=== PATIENT | male | born 1955 | race Caucasian/White ===

== ENCOUNTER → 2016-07-11 | Outpatient (CLI) | payer BC ==
--- NOTE | 2016-07-11 12:34 | CT ---
CT urogram with and without contrast HISTORY: Hydronephrosis, calculus of kidney Helical acquisition obtained through the abdomen pre- and postadministration 100 cc Omni 300 IV, post contrast imaging obtained through the abdomen and pelvis. Three-dimensional reconstructions performed on an alternate workstation. No comparisons The left kidney shows a punctate calcification at the upper pole measuring 1 mm. There is an addition al calcification at the midpole laterally measuring approximately 6 to 7 mm which is nonobstructive, lower pole calculus also noted measuring approximately 6 mm which is nonobstructive. Cystic areas are diffuse within the left renal collecting system greater than right compatible with parapelvic cysts. Symmetric nephrograms are present bilaterally, renal cell carcinoma is not evident. Small posterior cortical cyst present on the right kidney measuring only 1 cm in greatest dimension. The ureters show normal course and caliber. No evident filling defect within the renal collecting systems, there is n o hydronephrosis. Prostate shows some associated calcification. The liver shows low attenuation in likely is enlarged. The adrenal glands, spleen, pancreas, gallblad melodie are unremarkable. Lung bases show some minimal atelectatic change. Degenerative disc changes in t he visualized spine. Osteoarthritis within the hips. The bladder shows no filling defect. No retroper itoneal adenopathy. Aorta shows some atheromatous change, normal caliber. Possible inguinal hernias c ontaining fat. IMPRESSION: Nonobstructive left nephrolithiasis. Parapelvic cysts are extensive within the left kidne y. Probable fatty infiltration of the liver, hepatomegaly. Additional findings above.
== END | disposition home or self-care (01) ==
LOC: RADCTMAIN 10:07
PROVIDERS: ATTEND Urology
DX: N20.0 Calculus of kidney (principal); N28.1 Cyst of kidney, acquired
CPT/HCPCS: 74178; 74400; Q9967

== ENCOUNTER → 2018-11-13 | Outpatient (CLI) | payer BC, MEDICARE ==
--- NOTE | 2018-11-13 07:32 | US ---
EXAMINATION TYPE: US duplex aorta DATE OF EXAM: 11/13/2018 COMPARISON: NONE CLINICAL HISTORY: I71.4 AAA Screening, Z87.891 Personal history of n. maternal history of AAA, no sym ptoms per patient EXAM MEASUREMENTS: Abdominal Aorta: Proximal: N/A Mid: 2.1 x 2.0cm Distal: 1.7 x 1.7cm Bifurcation: Rt 1.1cm Lt 1.1cm Unable to visualize proximal portion due to bowel gas. Visualized portion of aorta were normal caliber. IMPRESSION: No sonographic evidence of abdominal aortic aneurysm in the visualized portions of the ab dominal aorta. The aorta is mildly tortuous.
--- NOTE | 2018-11-13 07:38 | XR ---
EXAMINATION TYPE: XR chest 2V DATE OF EXAM: 11/13/2018 COMPARISON: NONE HISTORY: Productive cough and left shoulder pain TECHNIQUE: Frontal and lateral views of the chest are obtained. FINDINGS: There is no focal air space opacity, pleural effusion, or pneumothorax seen. The cardiac silhouette size is within normal limits. The osseous structures are intact. Moderate multilevel deg enerative changes of the spine are seen. IMPRESSION: No acute cardiopulmonary process.
--- NOTE | 2018-11-13 07:43 | XR ---
EXAMINATION TYPE: XR shoulder complete LT DATE OF EXAM: 11/13/2018 CLINICAL HISTORY: Left shoulder pain without injury TECHNIQUE: Three views of the left shoulder are obtained. COMPARISON: None. FINDINGS: There is no acute fracture/dislocation evident in the left shoulder. The acromioclavicula r joint demonstrates small marginal osteophytes. Glenohumeral joint is within normal limits. The visu alized ribs are intact and unremarkable. IMPRESSION: There is no acute fracture or dislocation in the left shoulder. Mild acromioclavicular a rthropathy.
== END ==
LOC: RADUSWWP 06:51
PROVIDERS: ATTEND Family Medicine
DX: I71.4 Abdominal aortic aneurysm, without rupture (principal); M25.512 Pain in left shoulder; M75.41 Impingement syndrome of right shoulder; M24.512 Contracture, left shoulder; R05 Cough
CPT/HCPCS: 71046; 93979

== ENCOUNTER 2021-04-29 13:21 | Emergency (ER) | payer MEDICARE ==
[2021-04-29 13:41] VITALS: TEMP 98.1
[2021-04-29] MEDS ORDERED: SODIUM CHLORIDE 0.9% 500 ML 500 ML IV STA (16:40)
--- NOTE | 2021-04-29 16:44 | ED ---
General Adult HPI - General Chief complaint: Syncope Stated complaint: Post Op-Syncope Time Seen by Provider: 04/29/21 16:31 Source: patient, family, RN notes reviewed, old records reviewed Mode of arrival: ambulatory Limitations: no limitations - History of Present Illness Initial comments: Well-appearing 65-year-old male, alert and oriented 4, presents to the emergency room with complaints of a syncopal episode this morning around 8:30 after urinating. Patient states that he urinated and then walked from the bathroom to the bedroom and had syncope. He denies hitting his head. He denies any chest pain or difficulty in breathing. He states he has no symptoms at this time. He did go to urgent care and they recommended he come to the emergency room for evaluation. He does have a history of a right hip replacement done on Friday at [facility]. He is taking pain medication and became constipated last week. He did take milk of magnesia and a laxative and did have a bowel movement yesterday. He denies any nausea vomiting or diarrhea. He denies any fevers. -: hour(s) (8) Severity scale (1-10): 3 Quality: aching Consistency: intermittent Improves with: rest Worsens with: movement Associated Symptoms: denies other symptoms - Related Data Home Medications Medication Instructions Recorded Confirmed Acetaminophen Tab [Tylenol] 1,000 mg PO HS PRN 04/29/21 04/29/21 Acetaminophen Tab [Tylenol] 500 mg PO Q4-6H PRN 04/29/21 04/29/21 Aspirin EC [Ecotrin Low Dose] 81 mg PO DAILY 04/29/21 04/29/21 Docusate [Colace] 100 mg PO TID 04/29/21 04/29/21 Magnesium Hydroxide [Milk of 800 mg PO ONCE PRN 04/29/21 04/29/21 Magnesia] oxyCODONE HCL 5 mg PO Q4-6H PRN 04/29/21 04/29/21 Allergies Allergy/AdvReac Type Severity Reaction Status Date / Time No Known Allergies Allergy Verified 04/29/21 18:15 Review of Systems ROS Statement: Those systems with pertinent positive or pertinent negative responses have been documented in the HPI. ROS Other: All systems not noted in ROS Statement are negative. Past Medical History Past Medical History: No Reported History History of Any Multi-Drug Resistant Organisms: None Reported Past Surgical History: Joint Replacement Past Psychological History: No Psychological Hx Reported Smoking Status: Never smoker Past Alcohol Use History: None Reported Past Drug Use History: None Reported General Exam Limitations: no limitations General appearance: alert, in no apparent distress Head exam: Present: atraumatic, normocephalic, normal inspection Eye exam: Present: normal appearance, EOMI. Absent: scleral icterus, conjunctival injection, periorbital swelling, periorbital tenderness ENT exam: Present: normal exam, normal oropharynx, mucous membranes moist Neck exam: Present: normal inspection, full ROM. Absent: tenderness, meningismus, lymphadenopathy, thyromegaly Respiratory exam: Present: normal lung sounds bilaterally. Absent: respiratory distress, wheezes, rales, rhonchi, stridor, chest wall tenderness, accessory muscle use Cardiovascular Exam: Present: regular rate, normal rhythm, normal heart sounds. Absent: systolic murmur, diastolic murmur, rubs, gallop, clicks, JVD GI/Abdominal exam: Present: soft, normal bowel sounds. Absent: distended, tenderness, guarding, rebound, rigid Extremities exam: Present: normal inspection, full ROM, normal capillary refill. Absent: tenderness, pedal edema, joint swelling, calf tenderness Back exam: Present: normal inspection, full ROM. Absent: tenderness, CVA tenderness (R), CVA tenderness (L), rash noted Neurological exam: Present: alert, oriented X3 Psychiatric exam: Present: normal affect, normal mood Skin exam: Present: warm, dry, intact, normal color. Absent: rash, cyanosis, diaphoretic, petechiae, pallor Course Vital Signs 04/29/21 13:38 Temperature 98.1 F Pulse Rate 75 Respiratory 18 Rate Blood Pressure 119/80 O2 Sat by Pulse 97 Oximetry EKG Findings - EKG Results: EKG: sinus rhythm (Ventricular rate of 69, IL interval 0.168, QRS 0.80, QTC 0.407) Medical Decision Making - Medical Decision Making This is a well-appearing 65-year-old male patient presents to the emergency room with a syncopal episode this morning after using the bathroom. He did not hit his head. He is not on any blood thinners. He had a recent right hip replacement on Friday. He has had no complications. States this pain medication caused him to have constipation he uses laxatives. He did have a good bowel movement yesterday. He denies any chest pain or difficulty in breathing. Chest x-ray shows normal chest. Heart and mediastinum are normal EKG shows normal sinus rhythm no ectopy or ST elevation. Troponin is negative at 0.012. There is no evidence of leukocytosis. Hemoglobin and hematocrit are stable. Blood glucose is 154 sodium is 131, potassium is 2.2, urinalysis is clear infection. This is likely a vasovagal episode as patient was leaving the bathroom after urinating when syncope happened. He denies any chest pain or shortness of breath. Patient is feeling better and has not had any dizziness, chest pain or difficulty in breathing while in the emergency room. His vital signs are stable. He'll be discharged home to follow up with his primary care doctor. Discussed with Dr. Liao - Lab Data Result diagrams: 04/29/21 16:58 04/29/21 16:58 Lab Results 04/29/21 04/29/21 04/29/21 Range/Units 16:58 16:58 16:58 WBC 7.8 (3.8-10.6) k/uL RBC 4.48 (4.30-5.90) m/uL Hgb 13.3 (13.0-17.5) gm/dL Hct 40.8 (39.0-53.0) % MCV 91.1 (80.0-100.0) fL MCH 29.6 (25.0-35.0) pg MCHC 32.5 (31.0-37.0) g/dL RDW 13.0 (11.5-15.5) % Plt Count 215 (150-450) k/uL MPV 7.3 Neutrophils % 77 % Lymphocytes % 15 % Monocytes % 6 % Eosinophils % 1 % Basophils % 0 % Neutrophils # 6.1 (1.3-7.7) k/uL Lymphocytes # 1.2 (1.0-4.8) k/uL Monocytes # 0.4 (0-1.0) k/uL Eosinophils # 0.1 (0-0.7) k/uL Basophils # 0.0 (0-0.2) k/uL PT 9.6 (9.0-12.0) sec INR 0.9 (<1.2) APTT 21.7 L (22.0-30.0) sec Sodium (137-145) mmol/L Potassium (3.5-5.1) mmol/L Chloride (98-107) mmol/L Carbon Dioxide (22-30) mmol/L Anion Gap mmol/L BUN (9-20) mg/dL Creatinine (0.66-1.25) mg/dL Est GFR (CKD-EPI)AfAm (>60 ml/min/1.73 sqM) Est GFR (CKD-EPI)NonAf (>60 ml/min/1.73 sqM) Glucose (74-99) mg/dL Calcium (8.4-10.2) mg/dL Magnesium (1.6-2.3) mg/dL Total Bilirubin (0.2-1.3) mg/dL AST (17-59) U/L ALT (4-49) U/L Alkaline Phosphatase (38-126) U/L Troponin I (0.000-0.034) ng/mL Total Protein (6.3-8.2) g/dL Albumin (3.5-5.0) g/dL Urine Color Light Yellow Urine Appearance Clear (Clear) Urine pH 5.5 (5.0-8.0) Ur Specific Gillett 1.006 (1.001-1.035) Urine Protein Negative (Negative) Urine Glucose (UA) Negative (Negative) Urine Ketones Negative (Negative) Urine Blood Negative (Negative) Urine Nitrite Negative (Negative) Urine Bilirubin Negative (Negative) Urine Urobilinogen <2.0 (<2.0) mg/dL Ur Leukocyte Esterase Negative (Negative) 04/29/21 04/29/21 Range/Units 16:58 16:58 WBC (3.8-10.6) k/uL RBC (4.30-5.90) m/uL Hgb (13.0-17.5) gm/dL Hct (39.0-53.0) % MCV (80.0-100.0) fL MCH (25.0-35.0) pg MCHC (31.0-37.0) g/dL RDW (11.5-15.5) % Plt Count (150-450) k/uL MPV Neutrophils % % Lymphocytes % % Monocytes % % Eosinophils % % Basophils % % Neutrophils # (1.3-7.7) k/uL Lymphocytes # (1.0-4.8) k/uL Monocytes # (0-1.0) k/uL Eosinophils # (0-0.7) k/uL Basophils # (0-0.2) k/uL PT (9.0-12.0) sec INR (<1.2) APTT (22.0-30.0) sec Sodium 131 L (137-145) mmol/L Potassium 4.5 (3.5-5.1) mmol/L Chloride 98 (98-107) mmol/L Carbon Dioxide 28 (22-30) mmol/L Anion Gap 5 mmol/L BUN 15 (9-20) mg/dL Creatinine 0.93 (0.66-1.25) mg/dL Est GFR (CKD-EPI)AfAm >90 (>60 ml/min/1.73 sqM) Est GFR (CKD-EPI)NonAf 85 (>60 ml/min/1.73 sqM) Glucose 154 H (74-99) mg/dL Calcium 8.8 (8.4-10.2) mg/dL Magnesium 2.2 (1.6-2.3) mg/dL Total Bilirubin 1.4 H (0.2-1.3) mg/dL AST 54 (17-59) U/L ALT 21 (4-49) U/L Alkaline Phosphatase 57 (38-126) U/L Troponin I <0.012 (0.000-0.034) ng/mL Total Protein 6.3 (6.3-8.2) g/dL Albumin 3.5 (3.5-5.0) g/dL Urine Color Urine Appearance (Clear) Urine pH (5.0-8.0) Ur Specific Gillett (1.001-1.035) Urine Protein (Negative) Urine Glucose (UA) (Negative) Urine Ketones (Negative) Urine Blood (Negative) Urine Nitrite (Negative) Urine Bilirubin (Negative) Urine Urobilinogen (<2.0) mg/dL Ur Leukocyte Esterase (Negative) Disposition Clinical Impression: Vasovagal syncope Disposition: HOME SELF-CARE Condition: Good Instructions (If sedation given, give patient instructions): Syncope (ED) Additional Instructions: Increase your fluid intake. Change positions slowly to prevent any dizziness. Follow-up with your primary care doctor next week. Return to the emergency room with any new or worsening symptoms Is patient prescribed a controlled substance at d/c from ED?: No Referrals: Dominga Bermeo DO [Primary Care Provider] - 1-2 days Time of Disposition: 18:35
[2021-04-29 17:21] LABS: Basophils % (A) 0 %; Eosinophils # (A) 0.1 k/uL (0-0.7); Eosinophils % (A) 1 %; HCT 40.8 % (39.0-53.0); HGB 13.3 gm/dL (13.0-17.5); Lymphocytes # (A) 1.2 k/uL (1.0-4.8); Lymphocytes % (A) 15 %; MCH 29.6 pg (25.0-35.0); MCHC 32.5 g/dL (31.0-37.0); MCV 91.1 fL (80.0-100.0); Mean Platelet Volume 7.3; Monocytes # (A) 0.4 k/uL (0-1.0); Monocytes % (A) 6 %; Neutrophils # (A) 6.1 k/uL (1.3-7.7); Neutrophils % (A) 77 %; Platelet Count 215 k/uL (150-450); RBC 4.48 m/uL (4.30-5.90); WBC 7.8 k/uL (3.8-10.6)
[2021-04-29 17:24] LABS: Appearance,Urine Clear (Clear); Bilirubin,Urine Negative (Negative); Blood,Urine Negative (Negative); Color,Urine Light Yellow; Glucose,Urine (UA) Negative (Negative); Ketones,Urine Negative (Negative); Leukocyte Esterase,Urine Negative (Negative); Nitrite,Urine Negative (Negative); PH, Urine 5.5 (5.0-8.0); Protein,Urine Negative (Negative); Specific Gravity,Urine 1.006 (1.001-1.035); Urobilinogen,Urine <2.0 mg/dL (<2.0)
--- NOTE | 2021-04-29 17:25 | XR ---
EXAMINATION TYPE: XR chest 2V DATE OF EXAM: 04/29/2021 COMPARISON: NONE HISTORY: Cough TECHNIQUE: 2 views FINDINGS: Heart and mediastinum are normal. Lungs are clear. Diaphragm is normal. Bony thorax appears normal. IMPRESSION: Normal chest. No change.
[2021-04-29 17:34] LABS: ALT 21 U/L (4-49); AST 54 U/L (17-59); African American GFR (CKD) >90 (>60 ml/min/1.73 sqM); Albumin 3.5 g/dL (3.5-5.0); Alkaline Phosphatase 57 U/L (38-126); Anion Gap 5 mmol/L; Blood Urea Nitrogen 15 mg/dL (9-20); Calcium 8.8 mg/dL (8.4-10.2); Carbon Dioxide 28 mmol/L (22-30); Chloride 98 mmol/L (98-107); Glucose 154 mg/dL (74-99); Magnesium 2.2 mg/dL (1.6-2.3); Non-African American GFR(CKD) 85 (>60 ml/min/1.73 sqM); Potassium 4.5 mmol/L (3.5-5.1); Sodium 131 mmol/L (137-145); Total Bilirubin 1.4 mg/dL (0.2-1.3); Total Protein 6.3 g/dL (6.3-8.2)
[2021-04-29 17:37] LABS: INR 0.9 (<1.2); Prothrombin Time 9.6 sec (9.0-12.0)
[2021-04-29 17:40] LABS: Partial Thromboplastin Time 21.7 sec (22.0-30.0)
[2021-04-29 19:16] VITALS: BP 133/75; PULSE 65; RESP 20
== END 2021-04-29 19:16 | disposition home or self-care (01) ==
LOC: EC 13:21
DX: R55 Syncope and collapse (principal); Z79.82 Long term (current) use of aspirin; Z96.641 Presence of right artificial hip joint
CPT/HCPCS: 36415; 71046; 80053; 81003; 83735; 84484; 85025; 85610; 85730; 93005; 99284

== ENCOUNTER → 2022-11-25 | Outpatient (CLI) | payer MEDICARE ==
--- NOTE | 2022-11-25 15:52 | XR ---
EXAMINATION TYPE: XR shoulder complete RT DATE OF EXAM: 11/25/2022 CLINICAL HISTORY: pain TECHNIQUE: Three views of the right shoulder are obtained. COMPARISON: None FINDINGS: There is no acute fracture/dislocation evident. The acromioclavicular and glenohumeral di int spaces appear moderately narrowed. The visualized ribs are intact and unremarkable. IMPRESSION: 1. There is no acute fracture or dislocation. ICD 10 NO FRACTURE, INITIAL EVALUATION
== END | disposition home or self-care (01) ==
LOC: RADXRMAIN 15:36
PROVIDERS: ATTEND Pediatrics
DX: M25.511 Pain in right shoulder (principal)

== ENCOUNTER → 2022-12-16 | Outpatient (CLI) | payer MEDICARE ==
--- NOTE | 2022-12-16 17:09 | CA ---
Transthoracic Echo Report Name: Clari Cr Age: 67 Gender: M : 1955 Exam Date: 12/16/2022 11:34 Exam Location: [facility] Ht (in): 69 Wt (lb): 173 Ordering Physician: Juan Branch MD Attending/Referring Phys: [employer]ator Vivek Shearer Procedure CPT: Indications: i34.1 MVP Cardiac Hx: Technical Quality: Fair Contrast 1: Total Dose (mL): Contrast 2: Total Dose (mL): MEASUREMENTS (Male / Female) Normal Values 2D ECHO LV Diastolic Diameter PLAX 4.1 cm 4.2 - 5.9 / 3.9 - 5.3 cm LV Systolic Diameter PLAX 1.9 cm IVS Diastolic Thickness 1.1 cm 0.6 - 1.0 / 0.6 - 0.9 cm LVPW Diastolic Thickness 1.3 cm 0.6 - 1.0 / 0.6 - 0.9 cm LV Relative Wall Thickness 0.6 RV Internal Dim ED PLAX 3.1 cm LVOT Diameter 2.3 cm Aortic Root Diameter 3.5 cm LA Systolic Diameter LX 2.3 cm 3.0 - 4.0 / 2.7 - 3.8 cm LV Diastolic Volume MOD BP 67.8 cm??? 67 - 155 / 56 - 104 cm??? LV Systolic Volume MOD BP 22.1 cm??? 22 - 58 / 19 - 49 cm??? LV Ejection Fraction MOD BP 67.4 % >= 55 % LV Diastolic Volume MOD 4C 70.8 cm??? LV Systolic Volume MOD 4C 20.4 cm??? LV Ejection Fraction MOD 4C 71.2 % LV Diastolic Length 4C 7.2 cm LV Systolic Length 4C 5.2 cm LV Diastolic Volume MOD 2C 59.7 cm??? LV Systolic Volume MOD 2C 20.0 cm??? LV Ejection Fraction MOD 2C 66.5 % LV Diastolic Length 2C 7.9 cm LV Systolic Length 2C 6.3 cm LA Volume 38.2 cm??? 18 - 58 / 22 - 52 cm??? Ascending Aorta Diameter 3.5 cm DOPPLER AV Peak Velocity 111.1 cm/s AV Peak Gradient 4.9 mmHg AI Peak Velocity 469.4 cm/s AI Peak Gradient 88.1 mmHg AI Pressure Half Time 1027.2 ms LVOT Peak Velocity 78.6 cm/s LVOT Peak Gradient 2.5 mmHg AV Area Cont Eq pk 2.8 cm??? MV Peak Velocity 93.3 cm/s MV Peak Gradient 3.5 mmHg MV Mean Velocity 54.2 cm/s MV Mean Gradient 1.4 mmHg MV Velocity Time Integral 31.3 cm MV Area PHT 3.5 cm??? Mitral E Point Velocity 67.5 cm/s Mitral A Point Velocity 72.3 cm/s Mitral E to A Ratio 0.9 MV Deceleration Time 218.9 ms MV E' Velocity 8.2 cm/s Mitral E to MV E' Ratio 8.3 TR Peak Velocity 116.3 cm/s TR Peak Gradient 5.4 mmHg PV Peak Velocity 106.0 cm/s PV Peak Gradient 4.5 mmHg FINDINGS Left Ventricle Normal LV size. Mild concentric LVH. Left ventricular ejection fraction is estimated at 55-60 %. Right Ventricle Normal right ventricular size. Right Atrium Normal right atrial size. Left Atrium Normal left atrial size. Mitral Valve Structurally normal mitral valve. Aortic Valve Trileaflet aortic valve. Mild to moderate AI. Tricuspid Valve Structurally normal tricuspid valve. Trace TR. Pulmonic Valve Pulmonic valve not well visualized. Mild PI. Pericardium Normal pericardium. Aorta Normal size aortic root and proximal ascending aorta. CONCLUSIONS Normal LV function Mild to moderate aortic regurgitation Previewed by: Dr. Zen Santoyo MD (Electronically Signed) Final Date: 16 December 2022 17:08
== END | disposition home or self-care (01) ==
LOC: RADECHMAIN 11:25
PROVIDERS: ATTEND Pediatrics
DX: I08.2 Rheumatic disorders of both aortic and tricuspid valves (principal); R42 Dizziness and giddiness
CPT/HCPCS: 93306

== ENCOUNTER → 2024-05-21 | Outpatient (CLI) | payer MEDICARE ==
[2024-05-21 09:11] LABS: African American GFR (CKD) 82 (>60 ml/min/1.73 sqM); Blood Urea Nitrogen 28 mg/dL (9-20); Non-African American GFR(CKD) 71 (>60 ml/min/1.73 sqM)
--- NOTE | 2024-05-21 18:50 | CT ---
EXAMINATION TYPE: CT brain wo/w con DATE OF EXAM: 05/21/2024 9:38 AM COMPARISON: None. CLINICAL INDICATION: Male, 68 years old with history of M25.551 PAIN IN RIGHT HIP M54.9 DORSALGIA, Rt leg weakness TECHNIQUE: CT of the brain is performed utilizing 3 mm thick sections through the posterior fossa and 3 mm thick sections through the remaining calvarium. Study is performed within 24 hours of arrival to the hospital. Contrast used:100 mL of Isovue 300 without and with IV Contrast, (none if empty) CT DLP: 2144.6 mGycm, Automated exposure control for dose reduction was used. FINDINGS: No abnormal hyperdensity is present to suggest an acute intracranial hemorrhage. No mass lesion is evident. No acute infarcts are evident. Ventricles and sulci are appropriate for the patient age. Paranasal sinuses and mastoid air cells within the [id number] are clear. Left septal spurring and deviation is noted. No suspicious enhancement is evident. IMPRESSION: 1. No acute intracranial process. Follow up MRI can be performed as clinically indicated. [facility], , 05/21/2024 6:48 PM
== END | disposition home or self-care (01) ==
LOC: RADCTMAIN 08:17
PROVIDERS: ATTEND Pediatrics
DX: K22.2 Esophageal obstruction (principal); M25.551 Pain in right hip
CPT/HCPCS: 82565; 84520; 70470; 36415; Q9967